=== PATIENT | male | born 1965 | race Caucasian/White ===

== ENCOUNTER 2016-10-19 05:38 | Emergency (ER) | payer OTHER ==
[2016-10-19] MEDS ORDERED: SODIUM CHLORIDE 0.9% 1,000 ML IV STA (05:55)
--- NOTE | 2016-10-19 06:00 | ED ---
General Adult HPI - General Source: patient, RN notes reviewed, old records reviewed Mode of arrival: ambulatory Limitations: no limitations <Prasanna Cadet - Last Filed: 10/19/16 07:00> <Daryl Martinez - Last Filed: 10/19/16 10:13> - General Chief complaint: Headache Stated complaint: headache, tachycardic Time Seen by Provider: 10/19/16 05:44 - History of Present Illness Initial comments: This is a 51-year-old male the ER with headache heart racing history of migraines. Patient's strong family history of heart disease. Patient's mom recently of A. fib is very anxious regarding this. Patient also admits to headache episodic headache on and off for 3 days, woke him up from sleep today. Patient also complaining of again chest pain and heaviness on his chest with shortness of breath. No nausea vomiting, no diarrhea. No fevers. (Prasanna Cadet) - Related Data Home Medications Medication Instructions Recorded Confirmed No Known Home Medications [No 04/04/15 10/19/16 Known Home Medications] Allergies Allergy/AdvReac Type Severity Reaction Status Date / Time No Known Allergies Allergy Verified 08/02/16 15:19 Review of Systems ROS Other: All systems not noted in ROS Statement are negative. <Prasanna Cadet - Last Filed: 10/19/16 07:00> ROS Other: All systems not noted in ROS Statement are negative. <Daryl Martinez - Last Filed: 10/19/16 10:13> ROS Statement: Those systems with pertinent positive or pertinent negative responses have been documented in the HPI. Past Medical History Past Medical History: No Reported History History of Any Multi-Drug Resistant Organisms: None Reported Past Surgical History: Orthopedic Surgery, Tonsillectomy Additional Past Surgical History / Comment(s): Vasectomy; ACL repair; Meniscus reconstruction Past Anesthesia/Blood Transfusion Reactions: No Reported Reaction Additional Past Anesthesia/Blood Transfusion Reaction / Comment(s): NO FAMILY HX OF PROBLEMS Past Psychological History: No Psychological Hx Reported Smoking Status: Never smoker Past Alcohol Use History: Occasional Past Drug Use History: None Reported <Prasanna Cadet - Last Filed: 10/19/16 07:00> General Exam Limitations: no limitations <Prasanna Cadet - Last Filed: 10/19/16 07:00> EKG Findings - EKG Comments: EKG Findings:: EKG shows normal sinus rhythm rate of 93, NJ 140, QRS 108, QTC 457 <Prasanna Cadet - Last Filed: 10/19/16 07:00> Medical Decision Making - Lab Data Result diagrams: 10/19/16 06:10 10/19/16 06:10 <Prasanna Cadet - Last Filed: 10/19/16 07:00> - Lab Data Result diagrams: 10/19/16 06:10 10/19/16 06:10 - Radiology Data Radiology results: report reviewed (I did review the imaging and reports no acute findings.), image reviewed <Daryl Martinez - Last Filed: 10/19/16 10:13> - Medical Decision Making The patient has received CT is a head and chest as well as x-rays and lab work. For the most part her things within reasonably normal limits he does have a 3 mm kidney stone in the right. No other acute findings blood sugar is mildly elevated. We did discuss all this. We discussed admission versus being discharged patient would like to be discharged to follow-up with his doctor outpatient. I believe this is reasonable at this time. Patient be discharged ( Daryl Martinez) - Lab Data Lab Results 10/19/16 10/19/16 10/19/16 Range/Units 06:10 06:10 06:10 WBC 4.7 (3.8-10.6) k/uL RBC 4.52 (4.30-5.90) m/uL Hgb 14.0 (13.0-17.5) gm/dL Hct 41.9 (39.0-53.0) % MCV 92.6 (80.0-100.0) fL MCH 30.9 (25.0-35.0) pg MCHC 33.4 (31.0-37.0) g/dL RDW 12.4 (11.5-15.5) % Plt Count 216 (150-450) k/uL Neutrophils % 51 % Lymphocytes % 37 % Monocytes % 6 % Eosinophils % 2 % Basophils % 0 % Neutrophils # 2.4 (1.3-7.7) k/uL Lymphocytes # 1.8 (1.0-4.8) k/uL Monocytes # 0.3 (0-1.0) k/uL Eosinophils # 0.1 (0-0.7) k/uL Basophils # 0.0 (0-0.2) k/uL PT (9.0-12.0) sec INR (<1.1) APTT (22.0-30.0) sec D-Dimer (<0.60) mg/L FEU Sodium 143 (137-145) mmol/L Potassium 3.8 (3.5-5.1) mmol/L Chloride 104 (98-107) mmol/L Carbon Dioxide 27 (22-30) mmol/L Anion Gap 12 mmol/L BUN 18 (9-20) mg/dL Creatinine 0.84 (0.66-1.25) mg/dL Est GFR (MDRD) Af Amer >60 (>60 ml/min/1.73 sqM) Est GFR (MDRD) Non-Af >60 (>60 ml/min/1.73 sqM) Glucose 130 H (74-99) mg/dL Calcium 9.3 (8.4-10.2) mg/dL Phosphorus 3.9 (2.5-4.5) mg/dL Magnesium 1.8 (1.6-2.3) mg/dL Total Bilirubin 0.4 (0.2-1.3) mg/dL AST 29 (17-59) U/L ALT 33 (21-72) U/L Alkaline Phosphatase 113 (38-126) U/L Total Creatine Kinase 141 (55-170) U/L CK-MB (CK-2) 1.1 (0.0-2.4) ng/mL CK-MB (CK-2) Rel Index 0.8 Troponin I 0.015 (0.000-0.034) ng/mL Total Protein 7.6 (6.3-8.2) g/dL Albumin 4.4 (3.5-5.0) g/dL TSH (0.465-4.680) mIU/L Urine Color Urine Appearance (Clear) Urine pH (5.0-8.0) Ur Specific Lupton (1.001-1.035) Urine Protein (Negative) Urine Glucose (UA) (Negative) Urine Ketones (Negative) Urine Blood (Negative) Urine Nitrate (Negative) Urine Bilirubin (Negative) Urine Urobilinogen (<2.0) mg/dL Ur Leukocyte Esterase (Negative) Influenza Type A RNA (Not Detectd) Influenza Type B (PCR) (Not Detectd) 10/19/16 10/19/16 10/19/16 Range/Units 06:10 06:10 06:10 WBC (3.8-10.6) k/uL RBC (4.30-5.90) m/uL Hgb (13.0-17.5) gm/dL Hct (39.0-53.0) % MCV (80.0-100.0) fL MCH (25.0-35.0) pg MCHC (31.0-37.0) g/dL RDW (11.5-15.5) % Plt Count (150-450) k/uL Neutrophils % % Lymphocytes % % Monocytes % % Eosinophils % % Basophils % % Neutrophils # (1.3-7.7) k/uL Lymphocytes # (1.0-4.8) k/uL Monocytes # (0-1.0) k/uL Eosinophils # (0-0.7) k/uL Basophils # (0-0.2) k/uL PT 9.9 (9.0-12.0) sec INR 1.0 (<1.1) APTT 24.7 (22.0-30.0) sec D-Dimer 0.70 H (<0.60) mg/L FEU Sodium (137-145) mmol/L Potassium (3.5-5.1) mmol/L Chloride (98-107) mmol/L Carbon Dioxide (22-30) mmol/L Anion Gap mmol/L BUN (9-20) mg/dL Creatinine (0.66-1.25) mg/dL Est GFR (MDRD) Af Amer (>60 ml/min/1.73 sqM) Est GFR (MDRD) Non-Af (>60 ml/min/1.73 sqM) Glucose (74-99) mg/dL Calcium (8.4-10.2) mg/dL Phosphorus 3.9 (2.5-4.5) mg/dL Magnesium 1.8 (1.6-2.3) mg/dL Total Bilirubin (0.2-1.3) mg/dL AST (17-59) U/L ALT (21-72) U/L Alkaline Phosphatase (38-126) U/L Total Creatine Kinase (55-170) U/L CK-MB (CK-2) (0.0-2.4) ng/mL CK-MB (CK-2) Rel Index Troponin I (0.000-0.034) ng/mL Total Protein (6.3-8.2) g/dL Albumin (3.5-5.0) g/dL TSH 4.500 (0.465-4.680) mIU/L Urine Color Urine Appearance (Clear) Urine pH (5.0-8.0) Ur Specific Lupton (1.001-1.035) Urine Protein (Negative) Urine Glucose (UA) (Negative) Urine Ketones (Negative) Urine Blood (Negative) Urine Nitrate (Negative) Urine Bilirubin (Negative) Urine Urobilinogen (<2.0) mg/dL Ur Leukocyte Esterase (Negative) Influenza Type A RNA (Not Detectd) Influenza Type B (PCR) (Not Detectd) 10/19/16 10/19/16 Range/Units 07:35 08:55 WBC (3.8-10.6) k/uL RBC (4.30-5.90) m/uL Hgb (13.0-17.5) gm/dL Hct (39.0-53.0) % MCV (80.0-100.0) fL MCH (25.0-35.0) pg MCHC (31.0-37.0) g/dL RDW (11.5-15.5) % Plt Count (150-450) k/uL Neutrophils % % Lymphocytes % % Monocytes % % Eosinophils % % Basophils % % Neutrophils # (1.3-7.7) k/uL Lymphocytes # (1.0-4.8) k/uL Monocytes # (0-1.0) k/uL Eosinophils # (0-0.7) k/uL Basophils # (0-0.2) k/uL PT (9.0-12.0) sec INR (<1.1) APTT (22.0-30.0) sec D-Dimer (<0.60) mg/L FEU Sodium (137-145) mmol/L Potassium (3.5-5.1) mmol/L Chloride (98-107) mmol/L Carbon Dioxide (22-30) mmol/L Anion Gap mmol/L BUN (9-20) mg/dL Creatinine (0.66-1.25) mg/dL Est GFR (MDRD) Af Amer (>60 ml/min/1.73 sqM) Est GFR (MDRD) Non-Af (>60 ml/min/1.73 sqM) Glucose (74-99) mg/dL Calcium (8.4-10.2) mg/dL Phosphorus (2.5-4.5) mg/dL Magnesium (1.6-2.3) mg/dL Total Bilirubin (0.2-1.3) mg/dL AST (17-59) U/L ALT (21-72) U/L Alkaline Phosphatase (38-126) U/L Total Creatine Kinase (55-170) U/L CK-MB (CK-2) (0.0-2.4) ng/mL CK-MB (CK-2) Rel Index Troponin I (0.000-0.034) ng/mL Total Protein (6.3-8.2) g/dL Albumin (3.5-5.0) g/dL TSH (0.465-4.680) mIU/L Urine Color Light Yellow Urine Appearance Clear (Clear) Urine pH 6.0 (5.0-8.0) Ur Specific Lupton 1.019 (1.001-1.035) Urine Protein Negative (Negative) Urine Glucose (UA) Negative (Negative) Urine Ketones Negative (Negative) Urine Blood Negative (Negative) Urine Nitrate Negative (Negative) Urine Bilirubin Negative (Negative) Urine Urobilinogen <2.0 (<2.0) mg/dL Ur Leukocyte Esterase Negative (Negative) Influenza Type A RNA Not Detected (Not Detectd) Influenza Type B (PCR) Not Detected (Not Detectd) Disposition <Prasanna Cadet - Last Filed: 10/19/16 07:00> <Daryl Martinez - Last Filed: 10/19/16 10:13> Clinical Impression: Palpitations, Headache Disposition: HOME SELF-CARE Condition: Good Instructions: Acute Headache (ED), Palpitations (ED)
[2016-10-19 06:17] LABS: Basophils % (A) 0 %; CH 31.6; CHCM 34.2; Eosinophils # (A) 0.1 k/uL (0-0.7); Eosinophils % (A) 2 %; HCT 41.9 % (39.0-53.0); HDW 2.56; Luc # (Auto) 0.16; Luc % (Auto) 3; Lymphocytes # (A) 1.8 k/uL (1.0-4.8); Lymphocytes % (A) 37 %; MCH 30.9 pg (25.0-35.0); MCHC 33.4 g/dL (31.0-37.0); MCV 92.6 fL (80.0-100.0); Mean Platelet Volume 6.4; Monocytes # (A) 0.3 k/uL (0-1.0); Monocytes % (A) 6 %; Neutrophils # (A) 2.4 k/uL (1.3-7.7); Neutrophils % (A) 51 %; RBC 4.52 m/uL (4.30-5.90); RDW 12.4 % (11.5-15.5); WBC 4.7 k/uL (3.8-10.6); WBC (Perox) 4.77
[2016-10-19 06:29] LABS: ALT 33 U/L (21-72); AST 29 U/L (17-59); Alkaline Phosphatase 113 U/L (38-126); Anion Gap 12 mmol/L; Blood Urea Nitrogen 18 mg/dL (9-20); Calcium 9.3 mg/dL (8.4-10.2); Carbon Dioxide 27 mmol/L (22-30); Chloride 104 mmol/L (98-107); Glucose 130 mg/dL (74-99); Magnesium 1.8 mg/dL (1.6-2.3); Non-African American GFR(MDRD) >60 (>60 ml/min/1.73 sqM); Phosphorous 3.9 mg/dL (2.5-4.5); Potassium 3.8 mmol/L (3.5-5.1); Sodium 143 mmol/L (137-145); Total Bilirubin 0.4 mg/dL (0.2-1.3); Total Protein 7.6 g/dL (6.3-8.2)
[2016-10-19 06:40] LABS: Partial Thromboplastin Time 24.7 sec (22.0-30.0); Prothrombin Time 9.9 sec (9.0-12.0)
[2016-10-19 06:56] LABS: Creatine Kinase MB 1.1 ng/mL (0.0-2.4); Troponin I 0.015 ng/mL (0.000-0.034)
--- NOTE | 2016-10-19 07:05 | XR ---
EXAM:Chest PA and lateral views INDICATION: 51-year-old male with weakness. COMPARISON: 02/18/2016. FINDINGS: PA and lateral views of the chest are obtained. The cardiomediastinal silhouette is within normal limits. Lungs are clear. No pleural effusions. Bony elements are within normal limits. IMPRESSION: No acute cardiopulmonary disease.
[2016-10-19] MEDS ORDERED: ACETAMINOPHEN IV (For NPO) 1,000 MG in EMPTY BAG 1 BAG IVPB STA (07:08)
[2016-10-19 07:17] LABS: Magnesium 1.8 mg/dL (1.6-2.3); Phosphorous 3.9 mg/dL (2.5-4.5)
--- NOTE | 2016-10-19 08:27 | CT ---
EXAMINATION TYPE: CT brain wo con DATE OF EXAM: 10/19/2016 8:16 AM COMPARISON: NONE HISTORY: IBRAHIM CT DLP: 1072.3 mGycm Automated exposure control for dose reduction was used. FINDINGS: There is no acute intracranial hemorrhage, mass effect, or midline shift identified. The ventricles and sulci are within normal limits in size. The globes are intact and the visualized sinuses are jazmin ar. IMPRESSION: No acute intracranial hemorrhage, mass effect, or midline shift is seen.
[2016-10-19] MEDS ORDERED: RX INFO: IV CONTRAST WAS GIVEN 1 EACH MISC MISCELLANE PRN (08:43)
[2016-10-19 09:02] VITALS: RESP 20
[2016-10-19 09:21] LABS: Appearance,Urine Clear (Clear); Bilirubin,Urine Negative (Negative); Glucose,Urine (UA) Negative (Negative); Ketones,Urine Negative (Negative); Leukocyte Esterase,Urine Negative (Negative); Nitrite,Urine Negative (Negative); Protein,Urine Negative (Negative); Specific Gravity,Urine 1.019 (1.001-1.035); UA Billing (MACRO vs. MICRO) CHEM; Urobilinogen,Urine <2.0 mg/dL (<2.0)
--- NOTE | 2016-10-19 09:44 | CT ---
EXAMINATION TYPE: CT angio chest DATE OF EXAM: 10/19/2016 9:23 AM COMPARISON: NONE HISTORY: Tachycardia CT DLP: 377.3 mGycm Automated exposure control for dose reduction was used. CONTRAST: CTA scan of the thorax is performed with IV Contrast, patient injected with 65 mL of Omnipaque 350, p ulmonary embolism protocol. . FINDINGS: LUNGS: The lungs are grossly clear, there is no concerning parenchymal mass or nodule identified. S ubsegmental changes bilaterally most typical of atelectasis. There are couple 2 to 3 mm pleural-based nodules which likely are postinflammatory There is no pleural effusion or pneumothorax seen. The tr acheobronchial tree is patent. MEDIASTINUM: There is satisfactory enhancement of the pulmonary artery and its branches, there is no CT evidence for pulmonary embolism. There are no greater than 1 cm hilar or mediastinal lymph nodes. No pericardial effusion is seen. OTHER: Nonobstructing 3 mm right renal calculus. Hypertrophic changes of the spine noted. IMPRESSION: 1. No CT evidence of pulmonary embolism 2. Nonobstructing right renal calculus
[2016-10-19 10:05] VITALS: BP 122/68; PULSE 68; TEMP 97.8
== END 2016-10-19 10:30 | disposition home or self-care (01) ==
LOC: EC 05:38
DX: R51 Headache (principal); R00.2 Palpitations; R73.9 Hyperglycemia, unspecified; R07.89 Other chest pain; R06.02 Shortness of breath; Z86.69 Personal history of other diseases of the nervous system and sense organs; Z82.49 Family history of ischemic heart disease and other diseases of the circulatory system
CPT/HCPCS: 99284; 96374; 96361; 36415; 93005; 85379; 80053; 82550; 82553; 83735; 84100; 84443; 84484; 85025; 85610; 85730; 81003; 87502; 71020; 70450; 71275; Q9967; J0131

== ENCOUNTER → 2016-12-09 | Outpatient (CLI) | payer OTHER ==
--- NOTE | 2016-12-09 22:50 | XR ---
EXAMINATION TYPE: XR KUB DATE OF EXAM: 12/09/2016 5:01 PM CLINICAL DATA: 51-year-old male left-sided abdominal pain, PHH COMPARISON: None FINDINGS: Supine imaging limited for assessment of free intraperitoneal air. Nonobstructive bowel gas pattern with mild overall stool burden. There is a 3 mm calcification in the left hemipelvis. IMPRESSION: 3 mm calcification in the left hemipelvis, equivocal between a pelvic phlebolith or distal ureteral c alculus.
== END | disposition home or self-care (01) ==
LOC: RADXRMAIN 16:37
PROVIDERS: ATTEND Urology
DX: N28.89 Other specified disorders of kidney and ureter (principal); N20.0 Calculus of kidney
CPT/HCPCS: 74000

== ENCOUNTER → 2017-10-23 | Outpatient (CLI) | payer OTHER ==
--- NOTE | 2017-10-23 14:45 | XR ---
EXAMINATION TYPE: XR abdomen 1V DATE OF EXAM: 10/23/2017 HISTORY: Pain Comparison: 5-17 Single KUB is submitted for interpretation. Findings: Right renal calculi: None Visualized. Right renal evaluation is obscured by overlying bowel content. Right ureteral calculi: None Visualized. Left renal calculi: None Visualized. Left ureteral calculi: Previously noted distal left ureteral calculus is no longer visible. Pelvic calcifications: None Visualized. Bowel gas pattern is unremarkable. No free air. No mass effects. IMPRESSION: 1. No definite calculus identified at this time.
== END | disposition home or self-care (01) ==
LOC: RADXRMAIN 13:51
PROVIDERS: ATTEND Urology
DX: N20.0 Calculus of kidney (principal)
CPT/HCPCS: 74018

== ENCOUNTER → 2024-07-22 | Outpatient (CLI) | payer BC ==
--- NOTE | 2024-07-22 17:01 | XR ---
EXAMINATION TYPE: XR chest 2V DATE OF EXAM: 07/22/2024 1:42 PM COMPARISON: 10/19/2016 CLINICAL INDICATION: Male, 59 years old with history of R05.9 COUGH, UNSPECIFIED, TECHNIQUE: XR chest 2V view(s) obtained. FINDINGS: The heart size is normal. The pulmonary vasculature is normal. The lungs are clear. IMPRESSION: 1. No acute pulmonary process. [facility], , 07/22/2024 4:59 PM
== END | disposition home or self-care (01) ==
LOC: RADXRMAIN 13:29
PROVIDERS: ATTEND Internal Medicine Geriatric Medicine
DX: R05.9 Cough, unspecified (principal)
CPT/HCPCS: 71046